=== PATIENT | female | born 1985 | race Hispanic/Latino ===

== ENCOUNTER → 2016-05-25 | Outpatient (REF) ==
--- NOTE | 2016-05-26 01:52 | REP ---
Clinical: Pain . Technique: AP, lateral, bilateral oblique and sunrise views right knee . Findings: The osseous structures and joint spaces are intact and relatively normal for age. There is no evidence for acute fracture or dislocation. No joint effusion is appreciated. [place] view cannot exclude very minimal heterogeneity to the undersurface of the patella with lateral patellofemoral joint space narrowing. Surrounding soft tissues are unremarkable. No subcutaneous emphysema or radiodense foreign body. Impression: Relatively normal, age-appropriate examination. Cannot exclude subtle degenerative changes to the patellofemoral joint space and correlation is recommended. Signed by Andres Copeland MD 05/26/2016 01:45 A
--- NOTE | 2016-05-26 01:56 | REP ---
Clinical: Pain and disability . Technique: AP, lateral, bilateral oblique, and coned-down views. Findings: Alignment and lordosis is maintained. The vertebral bodies including transverse process and spinous processes are intact and normal for age. Disc spaces appear relatively well maintained. There is no evidence for acute fracture / compression injury or subluxation. No evidence for spondylolysis or spondylolisthesis. No significant degenerative change is noted. Impression: Age appropriate lumbosacral spine radiograph series. If the patient remains symptomatic consider MRI for further investigation. Signed by Andres Copeland MD 05/26/2016 01:49 A
== END | disposition home or self-care (01) ==
LOC: M SMT 09:56
PROVIDERS: ATTEND Internal Medicine
DX: Z02.71 Encounter for disability determination (principal)

== ENCOUNTER 2016-06-10 22:51 | Emergency (ER) | payer BC, MEDICAID, OTHER ==
[2016-06-10] MEDS ORDERED: METHOCARBAMOL 500 MG TAB As Ordered ONE (23:35)
[2016-06-10] MEDS ORDERED: NORCO 5/325MG TABLET (BULK) As Ordered ONE (23:36)
--- NOTE | 2016-06-10 23:47 | EDDOCDS ---
Physician Documentation [facility] Name: Lupis Vo Age: 31 yrs Sex: Female : 1985 Arrival Date: 06/10/2016 Time: 22:51 Bed TR7 Private MD: Kin Onofre Disposition: 06/10/16 23:35 Discharged to Home/Self Care. Impression: Strain of muscle, fascia and tendon of lower back. - Condition is Stable. - Discharge Instructions: Lumbosacral Strain, Muscle Strain. - Prescriptions for Ibuprofen 800 mg Oral Tablet - take 1 tablet by ORAL route every 8 hours As needed take with food; 30 tablet. Robaxin 500 mg Oral Tablet - take 2 tablet by ORAL route every 6 hours As needed; 40 tablet. - Medication Reconciliation, Local Pharmacy Hours form. - Follow up: Private Physician; When: Call to arrange an appointment; Reason: Recheck today's complaints, Continuance of care. - Problem is new. - Symptoms are unchanged. Historical: - Allergies: No known drug Allergies; - Home Meds: 1. Naprosyn 220mg Oral tab 1 tab every 6 hours 2. loratadine 10 mg Oral tab 1 tab once daily 3. venlafaxine 37.5 mg oral tr24 1 tab once daily 4. fluoxetine 10 mg Oral cap 1 caps once daily 5. buspirone 10 mg Oral tab 1 tab 2 times per day - PMHx: Anxiety; Depression; Headaches; Allergies, Seasonal; Chronic Back pain; - PSHx: Cholecystectomy; - Social history: Smoking status: Patient states former smoker of tobacco. No barriers to communication noted, The patient speaks fluent Malay, Speaks appropriately for age. - Family history: Not pertinent. - : The pt / caregiver states he / she is not on anticoagulants. Home medication list is obtained from the patient. - Exposure Risk Screening:: None identified. 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 1 in. (154.94 cm); Pain 9/10; 22:52 Body Mass Index 48.56 (116.57 kg, 154.94 cm) sew MDM: 23:33 Methocarbamol 1 grams PO once ordered. mo1 23:33 HYDROcodone-acetaminophen 4 pack- 5 mg-325 mg 1 packets PO Per package directions; mo1 Dispense with patient. 1 po q4h prn for pain ordered. 23:40 [facility] Payment Agreement was scanned into [employer] and attached to record. gabe 23:40 Financial registration complete. gjb Administered Medications: 23:42 Drug: HYDROcodone-acetaminophen 4 pack- 1 packets [hydrocodone 5 mg-acetaminophen 325 ld5 mg tablet (1 tabs)] {Co-Signature: elio (Jacy Allen RN).} Route: PO; 23:44 Follow up: Response: Med's dispensed home ld5 23:44 Drug: Methocarbamol 1 grams [methocarbamol 500 mg tablet (2 tabs)] Route: PO; ld5 23:44 Follow up: Response: Confirmed pt not driving. ld5 Signatures: Ute Camara RN RN ld5 Jose Franklin PA PA mo1 Ariel Castaneda RN RN nn1 April Ruano b Jacy Allen RN, mcp The chart was reviewed and I authenticate all verbal orders and agree with the evaluation and treatment provided.Attachments: 23:40 [facility] Payment Agreement ivette MTDD
--- NOTE | 2016-06-10 23:47 | EDDOCDS ---
Nurse's Notes [facility] Name: Lupis Vo Age: 31 yrs Sex: Female : 1985 Arrival Date: 06/10/2016 Time: 22:51 Bed TR7 Private MD: Kin Onofre Diagnosis: Strain of muscle, fascia and tendon of lower back Presentation: 06/10 22:53 Presenting complaint: Patient states: back pain that started mid back and now is mainly nn1 right lower back pain. Reports history of back pain, states "my doctor is only giving Naprosyn and its not working". Acute neurological deficits are not present. Mechanism of Injury: No Mechanism of Injury. Adult Sepsis Screening: The patient does not have new or worsening altered mentation. Patient's respiratory rate is less than 22. Systolic blood pressure is greater than 100. Patient has a qSOFA score of 0- Negative Sepsis Screen. Suicide/Homicide risk assessment- the patient denies having any suicidal and/or homicidal ideations and does not present with any other emotional, behavioral or mental health complaints. Status: Patient is not a vp marketing services and skin or dependent. Transition of care: patient was not received from another setting of care. 22:53 Acuity: LUCIO Level 4 nn1 22:53 Method Of Arrival: Walkin/Carried/Asstd nn1 Triage Assessment: 22:59 General: Appears in no apparent distress, comfortable, Behavior is appropriate for age, nn1 cooperative. Pain: Location: right low back Pain currently is 9 out of 10 on a pain scale. Quality of pain is described as pressure, Pain began 2-3 days ago. Pt Declines HIV testing. Musculoskeletal: Circulation, motion, and sensation intact Capillary refill < 3 seconds Range of motion intact in all extremities. 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 Naprosyn 220mg Oral tab 1 tab every 6 hours 2. loratadine 10 mg Oral tab 1 tab once daily 3. venlafaxine 37.5 mg oral tr24 1 tab once daily 4. fluoxetine 10 mg Oral cap 1 caps once daily 5. buspirone 10 mg Oral tab 1 tab 2 times per day - PMHx: Anxiety; Depression; Headaches; Allergies, Seasonal; Chronic Back pain; - PSHx: Cholecystectomy; - Social history: Smoking status: Patient states former smoker of tobacco. No barriers to communication noted, The patient speaks fluent Palestinian, Speaks appropriately for age. - Family history: Not pertinent. - : The pt / caregiver states he / she is not on anticoagulants. Home medication list is obtained from the patient. - Exposure Risk Screening:: None identified. Screenin:44 Screening information is obtained from the patient. Fall risk: No risks identified. ld5 Assistance ADL's: requires no assistance with activities of daily living. Abuse/DV Screen: The patient / caregiver reports he/she is: not in a situation that causes fear, pain or injury. Nutritional screening: No deficits noted. Advance Directives: Currently, there is no health care proxy. home support is adequate. Assessment: 23:44 General: Appears in no apparent distress, Behavior is cooperative. Pain: Location: ld5 right low back Pain currently is 8 out of 10 on a pain scale. Neurological: Level of Consciousness is awake, alert. Respiratory: Airway is patent Respiratory effort is even, unlabored. Vital Signs: 22:52 BP 112 / 75; Pulse 72; Resp 16; Temp 96.8(T); Pulse Ox 99% on R/A; Weight 116.57 kg; sew Height 5 ft. 1 in. (154.94 cm); Pain 9/10; 22:52 Body Mass Index 48.56 (116.57 kg, 154.94 cm) [facility] [place] Vitals: 22:52 Log In Time: June 10, 2016 at 22:50. [facility] [place] ED Course: 22:52 Patient visited by Domitila Gomes. sew 22:52 Kin Onofre DO is Private Physician. sew 22:52 Patient moved to Waiting sew 22:53 Patient visited by Domitila Gomes. sew 22:53 Patient moved to Pre RCE sew 22:56 Triage Initiated nn1 23:23 Jose Franklin PA is PHCP. mo1 23:23 Erik Foy DO is Attending Physician. mo1 23:23 Patient moved to Triage 2 mcp 23:27 Patient visited by Jose Franklin PA. mo1 23:40 [facility] Payment Agreement was scanned into [employer] and attached to record. gjb 23:43 Patient moved to TR7 ld5 23:44 The patient / caregiver is instructed regarding the plan of care and ED course. ld5 23:44 No IV's were initiated during this patient's visit. No procedures done that require ld5 assistance. 23:46 Patient visited by Ute Camara RN. ld5 Administered Medications: 23:42 Drug: HYDROcodone-acetaminophen 4 pack- 1 packets [hydrocodone 5 mg-acetaminophen 325 ld5 mg tablet (1 tabs)] {Co-Signature: elio (Jacy Allen RN).} Route: PO; 23:44 Follow up: Response: Med's dispensed home ld5 23:44 Drug: Methocarbamol 1 grams [methocarbamol 500 mg tablet (2 tabs)] Route: PO; ld5 23:44 Follow up: Response: Confirmed pt not driving. ld5 Order Results: There are currently no results for this order. Outcome: 23:35 Discharge ordered by Provider. mo1 23:44 Discharge Assessment: Patient awake, alert and oriented x 3. No cognitive and/or ld5 functional deficits noted. Patient verbalized understanding of disposition instructions. patient administered narcotics - yes. Pt provided with safe discharge. The following High Risk Discharge criteria are identified: None. Discharged to home ambulatory. Condition: stable. Discharge instructions given to patient, Instructed on discharge instructions, follow up and referral plans. medication usage, no driving heavy equipment, Demonstrated understanding of instructions, medications, Pt was receptive of discharge instructions/ teaching. Prescriptions given X 2. No special radiology studies were completed. Property :Personal belongings accompany Pt. 23:46 Patient left the ED. ld5 Signatures: Jacy Allen RN RN mcp Dickerson, Laura,RN RN rafaela5 Domitila Gomes Michael, PA PA mo1 Ariel Castaneda RN RN nn1 April Ruano RN, mcp MTDD
--- NOTE | 2016-06-13 00:47 | EDDOCDS ---
Physician Documentation [facility] Name: Lupis Vo Age: 31 yrs Sex: Female : 1985 Arrival Date: 06/10/2016 Time: 22:51 Bed TR7 Private MD: Kin Onofre Disposition: 06/10/16 23:35 Discharged to Home/Self Care. Impression: Strain of muscle, fascia and tendon of lower back. - Condition is Stable. - Discharge Instructions: Lumbosacral Strain, Muscle Strain. - Prescriptions for Ibuprofen 800 mg Oral Tablet - take 1 tablet by ORAL route every 8 hours As needed take with food; 30 tablet. Robaxin 500 mg Oral Tablet - take 2 tablet by ORAL route every 6 hours As needed; 40 tablet. - Medication Reconciliation, Local Pharmacy Hours form. - Follow up: Private Physician; When: Call to arrange an appointment; Reason: Recheck today's complaints, Continuance of care. - Problem is new. - Symptoms are unchanged. Historical: - Allergies: No known drug Allergies; - Home Meds: 1. Naprosyn 220mg Oral tab 1 tab every 6 hours 2. loratadine 10 mg Oral tab 1 tab once daily 3. venlafaxine 37.5 mg oral tr24 1 tab once daily 4. fluoxetine 10 mg Oral cap 1 caps once daily 5. buspirone 10 mg Oral tab 1 tab 2 times per day - PMHx: Anxiety; Depression; Headaches; Allergies, Seasonal; Chronic Back pain; - PSHx: Cholecystectomy; - Social history: Smoking status: Patient states former smoker of tobacco. No barriers to communication noted, The patient speaks fluent Kiswahili, Speaks appropriately for age. - Family history: Not pertinent. - : The pt / caregiver states he / she is not on anticoagulants. Home medication list is obtained from the patient. - Exposure Risk Screening:: None identified. 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 1 in. (154.94 cm); Pain 9/10; 22:52 Body Mass Index 48.56 (116.57 kg, 154.94 cm) sew MDM: 23:33 Methocarbamol 1 grams PO once ordered. mo1 23:33 HYDROcodone-acetaminophen 4 pack- 5 mg-325 mg 1 packets PO Per package directions; mo1 Dispense with patient. 1 po q4h prn for pain ordered. 23:40 [facility] Payment Agreement was scanned into [employer] and attached to record. [facility] [place] 23:40 Financial registration complete. [facility] [place] 06/11 10:59 T-Sheet-- Draft Copy was scanned into [employer] and attached to record. gb Administered Medications: 06/10 23:42 Drug: HYDROcodone-acetaminophen 4 pack- 1 packets [hydrocodone 5 mg-acetaminophen 325 ld5 mg tablet (1 tabs)] {Co-Signature: mcp (Jacy Allen RN).} Route: PO; 23:44 Follow up: Response: Med's dispensed home ld5 23:44 Drug: Methocarbamol 1 grams [methocarbamol 500 mg tablet (2 tabs)] Route: PO; ld5 23:44 Follow up: Response: Confirmed pt not driving. ld5 Signatures: Saige Kelly, Reg Reg gb Ute Camara RN RN ld5 Jose Franklin PA PA mo1 Ariel Castaneda RN RN nn1 April Ruano gjb Jacy Allen RN, mcp The chart was reviewed and I authenticate all verbal orders and agree with the evaluation and treatment provided.Attachments: 23:40 [facility] Payment Agreement [facility] [place] 06/11 10:59 T-Sheet-- Draft Copy gb Chart Complete MTDD
--- NOTE | 2016-06-13 00:47 | EDDOCDS ---
Nurse's Notes [facility] Name: Lupis Vo Age: 31 yrs Sex: Female : 1985 Arrival Date: 06/10/2016 Time: 22:51 Bed TR7 Private MD: Kin Onofre Diagnosis: Strain of muscle, fascia and tendon of lower back Presentation: 06/10 22:53 Presenting complaint: Patient states: back pain that started mid back and now is mainly nn1 right lower back pain. Reports history of back pain, states "my doctor is only giving Naprosyn and its not working". Acute neurological deficits are not present. Mechanism of Injury: No Mechanism of Injury. Adult Sepsis Screening: The patient does not have new or worsening altered mentation. Patient's respiratory rate is less than 22. Systolic blood pressure is greater than 100. Patient has a qSOFA score of 0- Negative Sepsis Screen. Suicide/Homicide risk assessment- the patient denies having any suicidal and/or homicidal ideations and does not present with any other emotional, behavioral or mental health complaints. Status: Patient is not a hosted services analyst or dependent. Transition of care: patient was not received from another setting of care. 22:53 Acuity: LUCIO Level 4 nn1 22:53 Method Of Arrival: Walkin/Carried/Asstd nn1 Triage Assessment: 22:59 General: Appears in no apparent distress, comfortable, Behavior is appropriate for age, nn1 cooperative. Pain: Location: right low back Pain currently is 9 out of 10 on a pain scale. Quality of pain is described as pressure, Pain began 2-3 days ago. Pt Declines HIV testing. Musculoskeletal: Circulation, motion, and sensation intact Capillary refill < 3 seconds Range of motion intact in all extremities. 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 Naprosyn 220mg Oral tab 1 tab every 6 hours 2. loratadine 10 mg Oral tab 1 tab once daily 3. venlafaxine 37.5 mg oral tr24 1 tab once daily 4. fluoxetine 10 mg Oral cap 1 caps once daily 5. buspirone 10 mg Oral tab 1 tab 2 times per day - PMHx: Anxiety; Depression; Headaches; Allergies, Seasonal; Chronic Back pain; - PSHx: Cholecystectomy; - Social history: Smoking status: Patient states former smoker of tobacco. No barriers to communication noted, The patient speaks fluent Guatemalan, Speaks appropriately for age. - Family history: Not pertinent. - : The pt / caregiver states he / she is not on anticoagulants. Home medication list is obtained from the patient. - Exposure Risk Screening:: None identified. Screenin:44 Screening information is obtained from the patient. Fall risk: No risks identified. ld5 Assistance ADL's: requires no assistance with activities of daily living. Abuse/DV Screen: The patient / caregiver reports he/she is: not in a situation that causes fear, pain or injury. Nutritional screening: No deficits noted. Advance Directives: Currently, there is no health care proxy. home support is adequate. Assessment: 23:44 General: Appears in no apparent distress, Behavior is cooperative. Pain: Location: ld5 right low back Pain currently is 8 out of 10 on a pain scale. Neurological: Level of Consciousness is awake, alert. Respiratory: Airway is patent Respiratory effort is even, unlabored. Vital Signs: 22:52 BP 112 / 75; Pulse 72; Resp 16; Temp 96.8(T); Pulse Ox 99% on R/A; Weight 116.57 kg; sew Height 5 ft. 1 in. (154.94 cm); Pain 9/10; 22:52 Body Mass Index 48.56 (116.57 kg, 154.94 cm) [facility] [place] Vitals: 22:52 Log In Time: June 10, 2016 at 22:50. [facility] [place] ED Course: 22:52 Patient visited by Domitila Gomes. sew 22:52 Kin Onofre DO is Private Physician. sew 22:52 Patient moved to Waiting sew 22:53 Patient visited by Domitila Gomes. sew 22:53 Patient moved to Pre RCE sew 22:56 Triage Initiated nn1 23:23 Jose Franklin PA is PHCP. mo1 23:23 Erik Foy DO is Attending Physician. mo1 23:23 Patient moved to Triage 2 mcp 23:27 Patient visited by Jose Franklin PA. mo1 23:40 [facility] Payment Agreement was scanned into [employer] and attached to record. gjb 23:43 Patient moved to TR7 ld5 23:44 The patient / caregiver is instructed regarding the plan of care and ED course. ld5 23:44 No IV's were initiated during this patient's visit. No procedures done that require ld5 assistance. 23:46 Patient visited by Ute Camara RN. ld5 06/11 10:59 T-Sheet-- Draft Copy was scanned into [employer] and attached to record. gb Administered Medications: 06/10 23:42 Drug: HYDROcodone-acetaminophen 4 pack- 1 packets [hydrocodone 5 mg-acetaminophen 325 ld5 mg tablet (1 tabs)] {Co-Signature: elio (Jacy Allen RN).} Route: PO; 23:44 Follow up: Response: Med's dispensed home ld5 23:44 Drug: Methocarbamol 1 grams [methocarbamol 500 mg tablet (2 tabs)] Route: PO; ld5 23:44 Follow up: Response: Confirmed pt not driving. ld5 Order Results: There are currently no results for this order. Outcome: 23:35 Discharge ordered by Provider. mo1 23:44 Discharge Assessment: Patient awake, alert and oriented x 3. No cognitive and/or ld5 functional deficits noted. Patient verbalized understanding of disposition instructions. patient administered narcotics - yes. Pt provided with safe discharge. The following High Risk Discharge criteria are identified: None. Discharged to home ambulatory. Condition: stable. Discharge instructions given to patient, Instructed on discharge instructions, follow up and referral plans. medication usage, no driving heavy equipment, Demonstrated understanding of instructions, medications, Pt was receptive of discharge instructions/ teaching. Prescriptions given X 2. No special radiology studies were completed. Property :Personal belongings accompany Pt. 23:46 Patient left the ED. ld5 Signatures: Jacy Allen RN RN mcp Barnhardt, Gloria, Reg Reg Ute Camara,RN RN rafaela5 Domitila Gomes Michael, PA PA mo1 Ariel CastanedaRN RN [email or web address] April Ruano RN, mcp Chart Complete MTDD
--- NOTE | 2016-06-13 00:47 | EDDOCDS ---
Physician Documentation [facility] Name: Lupis Vo Age: 31 yrs Sex: Female : 1985 Arrival Date: 06/10/2016 Time: 22:51 Bed TR7 Private MD: Kin Onofre Disposition: 06/10/16 23:35 Discharged to Home/Self Care. Impression: Strain of muscle, fascia and tendon of lower back. - Condition is Stable. - Discharge Instructions: Lumbosacral Strain, Muscle Strain. - Prescriptions for Ibuprofen 800 mg Oral Tablet - take 1 tablet by ORAL route every 8 hours As needed take with food; 30 tablet. Robaxin 500 mg Oral Tablet - take 2 tablet by ORAL route every 6 hours As needed; 40 tablet. - Medication Reconciliation, Local Pharmacy Hours form. - Follow up: Private Physician; When: Call to arrange an appointment; Reason: Recheck today's complaints, Continuance of care. - Problem is new. - Symptoms are unchanged. Historical: - Allergies: No known drug Allergies; - Home Meds: 1. Naprosyn 220mg Oral tab 1 tab every 6 hours 2. loratadine 10 mg Oral tab 1 tab once daily 3. venlafaxine 37.5 mg oral tr24 1 tab once daily 4. fluoxetine 10 mg Oral cap 1 caps once daily 5. buspirone 10 mg Oral tab 1 tab 2 times per day - PMHx: Anxiety; Depression; Headaches; Allergies, Seasonal; Chronic Back pain; - PSHx: Cholecystectomy; - Social history: Smoking status: Patient states former smoker of tobacco. No barriers to communication noted, The patient speaks fluent Sinhala, Speaks appropriately for age. - Family history: Not pertinent. - : The pt / caregiver states he / she is not on anticoagulants. Home medication list is obtained from the patient. - Exposure Risk Screening:: None identified. 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 1 in. (154.94 cm); Pain 9/10; 22:52 Body Mass Index 48.56 (116.57 kg, 154.94 cm) sew MDM: 23:33 Methocarbamol 1 grams PO once ordered. mo1 23:33 HYDROcodone-acetaminophen 4 pack- 5 mg-325 mg 1 packets PO Per package directions; mo1 Dispense with patient. 1 po q4h prn for pain ordered. 23:40 [facility] Payment Agreement was scanned into [employer] and attached to record. [facility] 23:40 Financial registration complete. [facility] 06/11 10:59 T-Sheet-- Draft Copy was scanned into [employer] and attached to record. gb Administered Medications: 06/10 23:42 Drug: HYDROcodone-acetaminophen 4 pack- 1 packets [hydrocodone 5 mg-acetaminophen 325 ld5 mg tablet (1 tabs)] {Co-Signature: mcp (Jacy Allen RN).} Route: PO; 23:44 Follow up: Response: Med's dispensed home ld5 23:44 Drug: Methocarbamol 1 grams [methocarbamol 500 mg tablet (2 tabs)] Route: PO; ld5 23:44 Follow up: Response: Confirmed pt not driving. ld5 Signatures: Saige Kelly, Reg Reg gb Ute Camara RN RN ld5 Jose Franklin PA PA mo1 Ariel Castaneda RN RN nn1 April Ruano gjb Jacy Allen RN, mcp The chart was reviewed and I authenticate all verbal orders and agree with the evaluation and treatment provided.Attachments: 23:40 [facility] Payment Agreement [facility] 06/11 10:59 T-Sheet-- Draft Copy gb Chart Complete MTDD
== END 2016-06-10 23:46 | disposition home or self-care (01) ==
LOC: M ED 22:51
DX: S33.5XXA Sprain of ligaments of lumbar spine, initial encounter (principal); F41.9 Anxiety disorder, unspecified; F32.9 Major depressive disorder, single episode, unspecified; J30.2 Other seasonal allergic rhinitis; Z87.891 Personal history of nicotine dependence; Z79.891 Long term (current) use of opiate analgesic; Z79.899 Other long term (current) drug therapy; X58.XXXA Exposure to other specified factors, initial encounter; Y92.89 Other specified places as the place of occurrence of the external cause; Y93.89 Activity, other specified; Y99.9 Unspecified external cause status

== ENCOUNTER → 2016-08-19 | Outpatient (REF) | payer OTHER | LOC: M SFHCPLAZ 07:37 | DX: Z00.00 Encounter for general adult medical examination without abnormal findings (principal) ==

== ENCOUNTER 2016-12-15 12:57 | Inpatient (IN) | payer OTHER ==
[~2016-12-15] VITALS: Ht 154.9 cm; Wt 102.2 kg
[2016-12-15] MEDS ORDERED: NS 1,000 ML IV ONE (13:45)
[2016-12-15 14:07] LABS: MEAN CORPUSCULAR HEMOGLOBIN 28.5 pg (27.0-33.0); MEAN CORPUSCULAR HGB CONC 33.4 g/dl (32.0-36.5); MEAN CORPUSCULAR VOLUME 85.1 fl (80.0-96.0); RED CELL DISTRIBUTION WIDTH 13.1 % (11.5-14.5); WHITE BLOOD COUNT 14.7 K/mm3 (4.0-10.0)
[2016-12-15 14:19] LABS: CONTROL LINE HCG INT CTR LINE PRESENT
[2016-12-15 14:32] LABS: ALBUMIN 3.9 GM/DL (3.2-5.2); ALBUMIN/GLOBULIN RATIO 0.81 (1.00-1.93); ALKALINE PHOSPHATASE 112 U/L (45-117); ALT/SGPT 23 U/L (12-78); ANION GAP 10 MEQ/L (8-16); AST/SGOT 21 U/L (15-37); BILIRUBIN,DIRECT < 0.1 MG/DL (0.0-0.2); BILIRUBIN,TOTAL 0.4 MG/DL (0.2-1.0); BLOOD UREA NITROGEN 12 MG/DL (7-18); CALCIUM LEVEL 9.6 MG/DL (8.5-10.1); CARBON DIOXIDE LEVEL 25 MEQ/L (21-32); CHLORIDE LEVEL 105 MEQ/L (98-107); CREATININE FOR GFR 0.75 MG/DL (0.55-1.02); GLOMERULAR FILTRATION RATE > 60.0 (>60); GLUCOSE, FASTING 140 MG/DL (70-105); POTASSIUM SERUM 4.2 MEQ/L (3.5-5.1); SODIUM LEVEL 140 MEQ/L (136-145); TOTAL PROTEIN 8.7 GM/DL (6.4-8.2)
[2016-12-15 15:05] LABS: METHADONE URINE NEGATIVE (NEGATIVE)
--- NOTE | 2016-12-15 15:39 | REP ---
Portable chest x-ray: Single view. History: Altered mental status. Bradycardia. No comparison views. Findings: The lungs are symmetrically aerated and free of infiltrate. Heart is not felt to be enlarged. Pulmonary vasculature is not increased. EKG monitoring electrodes overlie the chest. Impression: No acute disease. Signed by Clayton Packer MD 12/15/2016 04:31 P
[2016-12-15] MEDS ORDERED: LORA10TA2 PO (17:28)
[2016-12-15] MEDS ORDERED: MELO15TA4 PO (17:28)
[2016-12-15] MEDS ORDERED: FLUO20CA19 PO (17:28)
[2016-12-15] MEDS ORDERED: FLUO10TA30 PO (17:28)
[2016-12-15] MEDS ORDERED: ZANA4TAB PO (17:29)
[2016-12-15] MEDS ORDERED: BUSP10TA PO (17:29)
[2016-12-15] MEDS ORDERED: METH20TA29 PO (17:29)
[2016-12-15] MEDS ORDERED: ONDANSETRON 4MG/2ML VIAL (J2405) IV PRN (20:00)
[2016-12-15] MEDS ORDERED: ATROPINE SULF 1MG/10ML SYRINGE (J0461) IV PRN (20:30)
--- NOTE | 2016-12-15 21:10 | HPE ---
DATE OF ADMISSION: 12/15/2016 This is a patient of Dr. Miller's and apparently BRENT Friedman CHIEF COMPLAINT: "My psychiatrist is an idiot." The following is a summary of her presentation: This is a 31-year-old patient who went to see Dr. Miller today, apparently she was feeling sluggish, was not quite herself, and Dr. Miller sent her for a psychiatric evaluation to the emergency department. In the emergency department, she was found to have a low heart rate, found to be in sinus rhythm, with no evidence of heart block, and I was called for admission. She is not complaining of any pain, chest pain, shortness of breath. She does not feel weak. Apparently, she has been taking some extra tizanidine because of muscle spasm and perhaps back pain. Although she is a relatively poor historian, she is alert and oriented times three. She is with her boyfriend who says that her level of mental status appears normal to him. Past surgical history is notable only for gallbladder removal. Past medical history is notable for denying diabetes, denying hypertension. She does have attention deficit hyperactivity disorder (ADHD) and insomnia. She has previously had cutting behavior. She says she has not had any previous issue with low heart rate. She has never been admitted to the mental health unit. ALLERGIES: No known drug allergies. Medications at home include: - fluoxetine - loratadine - meloxicam - tizanidine - methylphenidate - BuSpar Family history is notable for psychiatric illness. Socially, she does not smoke cigarettes. She does not use alcohol. She does smoke marijuana. She lives in [place]. Review of systems is somewhat limited, but specifically she is not describing any chest pain, shortness of breath, weakness, dizziness. Has no dysuria nor increased urinary frequency. Denies any interest in self-injurious behavior. On physical exam, her heart rate is 30-35, temperature is 97.2, respiratory rate 16, blood pressure most recently 178/97, with pulse oxygen 98%. Body mass index is 43.6. Note that during the course of my evaluation, the patient sits up and stands at bedside, takes a step to reach for something, and her heart rate goes to 40, she does not appear unsteady on her feet. On physical exam, she is morbidly obese. She has shockingly red hair. Her pupils are midrange and reactive. Nasal septum is midline. Mucous membranes are moist. Neck is thick. No obvious elevation in jugular venous pressure (JVP). Breathing is symmetrical, rested. I:E ratio is 1:3. She is speaking in complete sentences, although she is speaking slowly and sequitously, she does stay on topic. Heart is in a regular rate and rhythm. EKG shows sinus with a narrow QRS and no prolonged QTc, but bradycardic as previously mentioned. Abdomen soft, doughy, nontender. There is no lower extremity edema. Strength is symmetrical in the upper and lower extremities. White cell count 14.7, hemoglobin 13.1, and platelets of 498. Sodium 140, potassium 4.2, chloride 105, carbon dioxide 25, BUN 12, creatinine 0.7, glucose of 140, anion gap is 10. There is no elevation in LFTs. TSH within normal limits. hCG is negative. Urinalysis is remarkable for 77 white cells, 3+ leukocyte esterase, 13 red blood cells, 2+ bacteria with squamous epithelial cells noted. Toxicology screen is negative for aspirin, Tylenol, and alcohol. Is positive for cannabinoids. Confirmatory test is pending. Lyme disease was ordered. Chest x-ray shows no acute distress. My assessment is as follows: This is a 31-year-old with sinus bradycardia suspected to be from tizanidine overdose, intentional or not. The patient will require a two midnight hospital stay. Plan will be as follows: 1. Toxicology. I have discussed this case by phone with Poison Control. Half-life of tizanidine is 2.5 hours with metabolites having a half-life of approximately 20 hours. They recommend monitoring the patient on telemetry, giving atropine for bradycardia or even norepinephrine if needed. Certainly now her blood pressure is, if anything, elevated and she has been up and walking without difficulty. There is no role for that at this time. I have asked for two large bore IVs to be placed. Recommend keeping the patient on monitor until bradycardia has resolved and there is no prolongation of QTc and no prolonged QRS. 2. Mental health. The patient is under the care of Dr. Miller. This suspected overdose is likely unintentional, although there is some cutting behavior noted on the left arm. Will place the patient on a sitter and will consider a psychiatric consultation depending on clinical course. 3. The patient has an elevated white cell count and abnormal urinalysis. She does not appear acutely infected. Will check a urine culture (UC) and monitor her for further symptoms. There is no role for antibiotics at this time. 4. The patient's home medications will be held at this point and can be reconsidered in the morning. 5. Deep venous thrombosis (DVT) prophylaxis will be mechanical.
[2016-12-15 22:00] VITALS: BP 161/67
[2016-12-16] VITALS (8 sets, daily range): BP systolic 81–137; BP diastolic 51–68
[2016-12-16 05:29] LABS: MEAN CORPUSCULAR HEMOGLOBIN 28.5 pg (27.0-33.0); MEAN CORPUSCULAR HGB CONC 33.3 g/dl (32.0-36.5); MEAN CORPUSCULAR VOLUME 85.4 fl (80.0-96.0); RED CELL DISTRIBUTION WIDTH 12.8 % (11.5-14.5); WHITE BLOOD COUNT 13.3 K/mm3 (4.0-10.0)
[2016-12-16 06:01] LABS: ANION GAP 11 MEQ/L (8-16); BLOOD UREA NITROGEN 6 MG/DL (7-18); CALCIUM LEVEL 9.2 MG/DL (8.5-10.1); CARBON DIOXIDE LEVEL 21 MEQ/L (21-32); CHLORIDE LEVEL 104 MEQ/L (98-107); CREATININE FOR GFR 0.59 MG/DL (0.55-1.02); DIGOXIN LEVEL 0.2 NG/ML (0.5-2.0); GLOMERULAR FILTRATION RATE > 60.0 (>60); GLUCOSE, FASTING 114 MG/DL (70-105); MAGNESIUM LEVEL 2.2 MG/DL (1.8-2.4); POTASSIUM SERUM 4.3 MEQ/L (3.5-5.1); SODIUM LEVEL 136 MEQ/L (136-145)
--- NOTE | 2016-12-16 08:46 | ECGEPIP ---
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
[2016-12-16] MEDS: ACETAMINOPHEN TAB 650MG DOSE (2X325MG) PO PRN (12:34)
--- NOTE | 2016-12-16 18:36 | IPN ---
DATE: 12/16/2016 SUBJECTIVE: Patient is seen and examined in the room today. Patient denies any acute distress or complaint of discomfort. Denies any chest pain, palpations, weakness, or lightheadedness. No nausea. No vomiting. Per patient, she has been taking muscle relaxants, usually once daily, either in the morning or at night. Patient stated that she rarely takes more than her usual recommended dose. However, per record there is an indication showing that patient may have been taking more than her usual muscle relaxants due to worsening pain in the last few days. Per nursing staff, patient's heart rate has been wandering between 35-45, occasionally the heart rate will raise to 50s. Patient has been having lightheadedness and weakness during bodily movements. OBJECTIVE: VITAL SIGNS: Temperature 97.1, pulse 76, respiration rate is 18, blood pressure 116/62, pulse oximetry is 97% in room air. GENERAL: No sign of acute distress. Alert and oriented times three. HEENT: Normocephalic, atraumatic. Extraocular motors grossly intact. CARDIOVASCULAR: Bradycardic, positive S1, S2. LUNGS: Clear to auscultation bilaterally. ABDOMEN: Soft, nontender, nondistended. Bowel sounds present. No rebound. No guarding. EXTREMITIES: No edema. No sign of cyanosis. LABORATORY DATA: WBC 13.3, hemoglobin 13.8, hematocrit 41.5, platelet count 425. Sodium 136, potassium 4.3, chloride 104, carbon dioxide 21, BUN 6, creatinine 0.59, GFR greater than 60, fasting glucose 114, calcium 9.2, magnesium 2.2. ASSESSMENT AND PLAN: 1. Symptomatic bradycardia. Patient is monitored in telemetry. Currently, patient is still having symptoms, most significantly during any type of body exertion or posture changes. Recommend bed rest for now. Based on the history, there is a suspicion that patient took more than her usual tizanidine. Poison Control was contacted during admission and recommended monitoring on telemetry. The half-life of the tizanidine is approximately 24 hours. Patient will continue under observation. If patient does not have any improvement in the heart rate in the next 24 hours, will consider consulting office services specialist for symptomatic bradycardia. 2. Psychiatric illnesses including attention deficit hyperactivity disorder (ADHD), anxiety, and depression. The patient is under the care of Dr. Miller. At this moment, we will continue the patient's home medications. 3. Chronic back pain. Due to current bradycardia, muscle relaxant will be discontinued. Patient will have Tylenol for pain control. 4. Deep venous thrombosis (DVT) prophylaxis. On thromboembolism deterrents (TEDs) and sequential compression device.
[2016-12-17] VITALS (7 sets, daily range): BP systolic 80–128; BP diastolic 45–79
[2016-12-17 04:31] LABS: MEAN CORPUSCULAR HEMOGLOBIN 28.6 pg (27.0-33.0); MEAN CORPUSCULAR HGB CONC 33.5 g/dl (32.0-36.5); MEAN CORPUSCULAR VOLUME 85.4 fl (80.0-96.0); RED CELL DISTRIBUTION WIDTH 12.9 % (11.5-14.5)
[2016-12-17 04:42] LABS: ANION GAP 11 MEQ/L (8-16); BLOOD UREA NITROGEN 12 MG/DL (7-18); CALCIUM LEVEL 8.9 MG/DL (8.5-10.1); CARBON DIOXIDE LEVEL 24 MEQ/L (21-32); CHLORIDE LEVEL 106 MEQ/L (98-107); GLOMERULAR FILTRATION RATE > 60.0 (>60); GLUCOSE, FASTING 86 MG/DL (70-105); MAGNESIUM LEVEL 2.2 MG/DL (1.8-2.4); POTASSIUM SERUM 3.9 MEQ/L (3.5-5.1); SODIUM LEVEL 141 MEQ/L (136-145)
[2016-12-17] MEDS: METHYLPHENIDATE 5 MG TAB PO SCH ×2 (08:00→16:21)
[2016-12-17] MEDS ORDERED: COSYNTROPIN 0.25 MG/ML VIAL (J0835) IV ONE (09:00)
--- NOTE | 2016-12-17 11:50 | ECGEPIP ---
Stationary ECG Study 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
--- NOTE | 2016-12-17 11:52 | ECHO ---
DATE OF PROCEDURE: 12/17/2016 REFERRING PHYSICIAN: Dr. Gentile INDICATION: Arrhythmia and hypotension. HEIGHT: 155 cm WEIGHT: 105 kg DIMENSIONS: IVS: 0.8 LV: 4.5 LVPW: 0.8 LA: 3.3 Aorta: 3.1 FINDINGS: The study is of acceptable technical quality. Left ventricle is of normal size and systolic function, estimated left ventricular ejection fraction (LVEF) 65-70%. No segmental wall motion abnormalities are appreciated. Right ventricle also appears normal. Both atria appear normal. All four cardiac valves were well seen and appear normal. No pericardial effusion is noted. Inferior vena cava is normal size. Aortic root is normal. Aortic arch is normal. Abdominal aorta was not well seen. Doppler interrogation reveals no aortic stenosis or insufficiency, no mitral stenosis or insufficiency and trace tricuspid and pulmonic insufficiency. Calculated pulmonary artery pressure is within normal limits. Mitral inflow pattern and tissue Doppler imaging of mitral annulus reveal grade 1 diastolic dysfunction. CONCLUSIONS: 1. Study is of acceptable technical quality. 2. Normal left ventricle (LV) size and systolic function, grade 1 diastolic dysfunction. 3. No significant valvular disease. 4. Normal central venous pressure and likely normal pulmonary artery pressure. COMMENT: Subacute bacterial endocarditis (SBE) prophylaxis is not recommended. Hypotension is not due to LV dysfunction. MTDD
--- NOTE | 2016-12-17 12:09 | ECGEPIP ---
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
--- NOTE | 2016-12-17 15:55 | IPN ---
DATE: 12/17/2016 SUBJECTIVE: The patient is seen and examined in the room today. Per patient, yesterday she still had low heart rate and when she tried to stand up she felt lightheadedness , but it only happened a few times yesterday. Denies any palpitations, chest pain, lightheadedness. Denies any difficulty breathing. Denied any neurological changes. According to the patient, she does not remember her baseline blood pressure. However, the only thing she remembers is every time she gets the blood pressure checked, she usually has a systolic greater than 100. Denies any recent medication changes since September by the psychiatrist. Per patient, the patient only smoked regular marijuana and she has never tried the synthetic version. OBJECTIVE: VITAL SIGNS: Temperature is 97.5, pulse is 52, respiratory rate 20, blood pressure is 86/50, pulse oximetry 99% on room air. GENERAL: No sign of acute distress, alert and oriented times three. HEENT: Normocephalic, atraumatic. Extraocular motor grossly intact. CARDIOVASCULAR: Bradycardia with heart rate wandering around 50s-60s. Positive S1, S2. LUNGS: Clear to auscultation bilaterally. ABDOMEN: Soft, nontender, nondistended. Bowel sounds present. No rebound, no guarding. EXTREMITIES: No edema. No sign of cyanosis. LABORATORY DATA: WBC is 10, hemoglobin 12.5, hemoglobin 37.3, platelet count 404. Sodium is 141, potassium 3.9, chloride 106, carbon dioxide 24, BUN 12, creatinine 0.8, GFR greater than 60, fasting glucose 86, lactic acid 0.9, calcium 8.9, magnesium 2.2. Troponin I is 0.02. C-reactive protein is 1.17. ASSESSMENT AND PLAN: 1. Symptomatic bradycardia. The patient is monitored on telemetry. Previously was suspected was due to the patient's frequent use of tizanidine. Tizanidine has been discontinued since admission. Poison control was initially contacted and recommended to monitor the patient on telemetry. The half-life of tizanidine is approximately 24 hours. The patient's heart rate started to improve in the last 24 hours. On the day of admission, the patient had heart rate around 30s. Today the average heart rate is around 50s. Currently surprisingly, the patient also has a significant change of blood pressure. On admission, the patient had hypertensive urgency with a blood pressure wandering around 180 to 200s. In the last 24-48 hours, the patient has continued decrease of the blood pressure now. Yesterday at night, the patient actually had a blood pressure of 80/53 with a mean arterial pressure (MAP) of 62. Currently, the patient is asymptomatic. Will continue to monitor. We will start a trial of bolus of fluid. The patient has atropine IV as needed for the symptomatic bradycardia. 2. Hypertensive urgency. Continues to improve with the discontinuation of tizanidine. Currently the patient is actually hypotensive. We will continue to monitor the patient and try to maintain the MAP above 65. IV fluid as needed. 3. Psychiatric illness including attention deficit hyperactivity disorder (ADHD) , anxiety and depression. The patient is under the care of Dr. Miller. Most recent medication adjustment was in September. When the patient starts to improve clinically , we will restart the patient's Prozac and buspirone. With regard to Ritalin, we will restart with lower than her usual dose. We will continue to monitor symptoms. 4. Chronic back pain. Suspicion for the patient's recurring tizanidine overuse. Muscle relaxant and pain medication will not be given to the patient at this moment. The patient will have Tylenol as needed. 5. Deep venous thrombosis (DVT) prophylaxis. Patient is on thromboembolism deterrent stockings (TEDs) and sequential compression devices. MTDD
[2016-12-17] MEDS: ACETAMINOPHEN TAB 650MG DOSE (2X325MG) PO PRN ×2 (16:28→20:15)
[2016-12-17] MEDS: busPIRone 10 MG TAB PO SCH (20:12)
[2016-12-17] MEDS ORDERED: FLUoxetine 10 MG CAP PO SCH (21:00)
[2016-12-18 00:06] LABS: Lyme Disease IgG/IgM Antibodie <0.91 ISR (0.00-0.90); Lyme Disease IgM Ab Quantitati <0.80 index (0.00-0.79)
[2016-12-18 03:48] VITALS: BP 110/67
[2016-12-18 04:42] LABS: MEAN CORPUSCULAR HEMOGLOBIN 28.6 pg (27.0-33.0); MEAN CORPUSCULAR HGB CONC 34.2 g/dl (32.0-36.5); MEAN CORPUSCULAR VOLUME 83.5 fl (80.0-96.0); RED CELL DISTRIBUTION WIDTH 13.2 % (11.5-14.5); WHITE BLOOD COUNT 12.1 K/mm3 (4.0-10.0)
[2016-12-18 05:01] LABS: ANION GAP 11 MEQ/L (8-16); BLOOD UREA NITROGEN 9 MG/DL (7-18); CALCIUM LEVEL 8.8 MG/DL (8.5-10.1); CARBON DIOXIDE LEVEL 23 MEQ/L (21-32); CHLORIDE LEVEL 107 MEQ/L (98-107); GLOMERULAR FILTRATION RATE > 60.0 (>60); GLUCOSE, FASTING 85 MG/DL (70-105); MAGNESIUM LEVEL 2.1 MG/DL (1.8-2.4); POTASSIUM SERUM 3.2 MEQ/L (3.5-5.1); SODIUM LEVEL 141 MEQ/L (136-145)
[2016-12-18] MEDS ORDERED: POTASSIUM CHLORIDE 10 MEQ SR TABLET PO ONE (06:15)
[2016-12-18 08:00] VITALS: BP 112/64
[2016-12-18] MEDS: busPIRone 10 MG TAB PO SCH (08:43)
[2016-12-18] MEDS: METHYLPHENIDATE 5 MG TAB PO SCH (08:43)
--- NOTE | 2016-12-18 12:49 | ECGEPIP ---
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
--- NOTE | 2016-12-18 15:11 | DSES ---
DATE OF ADMISSION: 12/15/2016 DATE OF DISCHARGE: 12/18/2016 PRIMARY CARE PROVIDER: BRENT Friedman PSYCHIATRIST: Dr. Miller CONSULTANTS: None. PROCEDURES: None. COMPLICATIONS: None. DISCHARGE DIAGNOSES: 1. Drug-induced symptomatic bradycardia. 2. Hypertensive urgency. 3. Psychiatric disease including attention deficit hyperactivity disorder (ADHD), anxiety and depression. 4. Chronic back pain. HOSPITAL COURSE: The patient is a 31-year-old female who presented to [facility] on 12/15/2016 with symptomatic sinus bradycardia. Tizanidine overuse was suspected and the patient was admitted on telemetry. Poison control has been contacted and recommended observation. On admission, the patient had systolic blood pressure persistently running above 180s with a heart rate in the range of 30-35. With time, the patient's heart rated started to improve to the 50-60 range. However, on the second day of her hospitalization, the patient's hypertensive urgency started to turn into hypotension without any medications. Later, the patient's heart rate and blood pressure slowly returned to her baseline. On 12/18/2016, the patient is determined to be medically stable for discharge home with recommendations to followup with her primary care provider in 1-2 weeks. The patient recommended not to take tizanidine anymore because of adverse effect. LABORATORY DATA: WBC is 12.1, hemoglobin is 12.7, hemoglobin 37.2, platelet count is 409. Sodium is 141, potassium 3.2, chloride 107, carbon dioxide 23, BUN 9, creatinine 0.7, GFR greater than 60, fasting glucose 85, calcium is 8.8, magnesium 2.1. Urine toxicology is positive for marijuana. Alcohol level is negative. Lyme disease screening test is negative. MICROBIOLOGY: Blood cultures are negative after 24 hours times two sets. Urine culture is pending. IMAGING STUDIES: Chest x-ray on 12/15/2016 shows no acute disease. DISCHARGE MEDICATIONS: - buspirone 10 mg by mouth twice a day - fluoxetine 30 mg by mouth at bedtime - loratadine 10 mg by mouth daily - Mobic 15 mg by mouth daily - methylphenidate 30 mg by mouth twice a day DISCHARGE INSTRUCTIONS: Discharge home. Activity as tolerated. Diet as tolerated. The patient should followup with her primary care provider, BRENT Friedman in 1-2 weeks. The patient is recommended not to take the tizanidine anymore due to adverse effect. DISCHARGE CONDITION: Stable. DISCHARGE TIME: Greater than 30 minutes.
[2016-12-23 00:06] LABS: GC Carboxy THC 170 ng/mL (Cutoff=10)
== END 2016-12-18 09:00 | disposition home or self-care (01) | DRG 812 ==
LOC: M ED 12:57 → M ED INP 19:59 → MERGE 19:59 → M ICU 21:14
PROVIDERS: ADMIT Internal Medicine; ATTEND Internal Medicine
DX: T42.8X4A Poisoning by antiparkinsonism drugs and other central muscle-tone depressants, undetermined, initial encounter (principal); I95.9 Hypotension, unspecified; E66.01 Morbid (severe) obesity due to excess calories; Z68.41 Body mass index [BMI] 40.0-44.9, adult; Y92.009 Unspecified place in unspecified non-institutional (private) residence as the place of occurrence of the external cause; F90.9 Attention-deficit hyperactivity disorder, unspecified type; R00.1 Bradycardia, unspecified; F41.9 Anxiety disorder, unspecified; F32.9 Major depressive disorder, single episode, unspecified; M54.9 Dorsalgia, unspecified; I16.0 Hypertensive urgency; G47.00 Insomnia, unspecified; Z79.899 Other long term (current) drug therapy; Z91.5 Personal history of self-harm

== ENCOUNTER → 2017-01-06 | Outpatient (CLI) | payer OTHER ==
[~2017-01-06] MED LIST: BUSP10TA PO; FLUO10TA30 PO; FLUO20CA19 PO; LORA10TA2 PO; MELO15TA4 PO; METH20TA29 PO; ZANA4TAB PO
--- NOTE | 2017-01-06 13:56 | REP ---
Clinical: back pain.. Technique: AP, lateral, flexion/extension, bilateral oblique, and coned-down views. Findings: Alignment and lordosis is maintained. The vertebral bodies including transverse process and spinous processes are intact and normal. There is no evidence for acute fracture / compression injury or subluxation. No evidence for spondylolysis or spondylolisthesis. No significant degenerative change is noted. Impression: Normal lumbosacral spine radiograph series. Signed by Andres Copeland MD 01/06/2017 01:47 P
[2017-01-06 14:15] LABS: BASO # 0.1 K/mm3 (0.0-0.2); BASO % 1.3 % (0.0-1.0); EOS # 0.2 K/mm3 (0.0-0.50); EOS % 2.1 % (0.0-3.0); LYMPH % 44.5 % (24.0-44.0); MEAN CORPUSCULAR HEMOGLOBIN 27.9 pg (27.0-33.0); MEAN CORPUSCULAR HGB CONC 31.4 g/dl (32.0-36.5); MONO # 0.5 K/mm3 (0.0-0.8); MONO % 5.8 % (0.0-5.0); NEUTROPHILS # 3.9 K/mm3 (1.8-7.7); NEUTROPHILS % 44.6 % (36.0-66.0); RED CELL DISTRIBUTION WIDTH 13.3 % (11.5-14.5); WHITE BLOOD COUNT 8.7 K/mm3 (4.0-10.0)
[2017-01-06 14:32] LABS: VITAMIN B12 LEVEL 517 PG/ML
[2017-01-06 14:33] LABS: FOLATE > 24.0 NG/ML
[2017-01-06 14:37] LABS: ALBUMIN 3.8 GM/DL (3.2-5.2); ALBUMIN/GLOBULIN RATIO 0.93 (1.00-1.93); ALKALINE PHOSPHATASE 97 U/L (45-117); ALT/SGPT 23 U/L (12-78); ANION GAP 9 MEQ/L (8-16); AST/SGOT 15 U/L (15-37); BILIRUBIN,TOTAL 0.2 MG/DL (0.2-1.0); BLOOD UREA NITROGEN 14 MG/DL (7-18); CALCIUM LEVEL 9.2 MG/DL (8.5-10.1); CARBON DIOXIDE LEVEL 26 MEQ/L (21-32); CHLORIDE LEVEL 107 MEQ/L (98-107); CREATININE FOR GFR 0.79 MG/DL (0.55-1.02); GLOMERULAR FILTRATION RATE > 60.0 (>60); GLUCOSE, FASTING 75 MG/DL (70-105); POTASSIUM SERUM 4.8 MEQ/L (3.5-5.1); SODIUM LEVEL 142 MEQ/L (136-145); TOTAL PROTEIN 7.9 GM/DL (6.4-8.2)
[2017-01-09 14:55] LABS: ALBUMIN 4.15 GM/DL (3.29-5.55); ALBUMIN % 52.5 % (55.8-66.1); GAMMA GLOBULIN % 18.4 % (11.1-18.8)
[2017-01-10 00:06] LABS: Lyme Disease IgG/IgM Antibodie <0.91 ISR (0.00-0.90); Lyme Disease IgM Ab Quantitati <0.80 index (0.00-0.79)
== END ==
LOC: M LAB 13:07 → MERGE 13:07
PROVIDERS: ATTEND Physician Assistant Medical
DX: G43.709 Chronic migraine without aura, not intractable, without status migrainosus (principal); M54.5 Low back pain

== ENCOUNTER → 2017-03-09 | Outpatient (CLI) | payer OTHER ==
--- NOTE | 2017-03-09 17:13 | REP ---
MRI LUMBAR SPINE WITHOUT CONTRAST: HISTORY: Spondylosis. Decreased signal intensity on T2-weighted images is present in the L5-S1 intervertebral disc. This represents disc degeneration. There is no disc bulge or herniation at the L1-2 through L3-4 levels. The nerves exit the neural foramina without compression. A diffuse disc bulge is present at the L4-5 level. This abuts the thecal sac. The L4 nerves exit the neural foramina without compression. A diffuse disc bulge is present at the L5-S1 level. This abuts the S1 nerves. There is no thecal sac compression. The L5 nerves exit the neural foramina without compression. The conus medullaris is normal in appearance terminating at the level of the T12-L1 intervertebral disc. Normal signal intensity is present in the lumbar vertebral bodies. IMPRESSION: 1. Diffuse disc bulge at the L4-5 level. This abuts the thecal sac. 2. Diffuse disc bulge at the L5-S1 level. This abuts the S1 nerves. Signed by Corbin Stoll MD 03/09/2017 05:17 P
== END ==
LOC: M RAD 12:57
PROVIDERS: ATTEND Nurse Practitioner Family
DX: M54.5 Low back pain (principal)

== ENCOUNTER → 2017-03-10 | Outpatient (CLI) | payer OTHER ==
--- NOTE | 2017-03-13 18:48 | SLEEPHOME ---
DATE OF PROCEDURE: 03/10/2017 ORDERED BY: Sangeetha Duran Diagnostic home sleep testing was performed due to concern for the obstructive sleep apnea syndrome in this patient with a history of excessive somnolence. For testing, a NOX-T3 respiratory monitoring device was used. Continuous record was made of pulse, oxygen saturation, air flow, chest and abdominal strain and body position. 10 hours and 59 minutes of data were reviewed and 6 hours and 46 minutes were marked as time in bed. During the interval marked time in bed, there were only 10 respiratory events identified of 10 seconds in duration or greater for a respiratory event index of 1.5. There was significant snoring noted. Baseline pulse rate 70 beats per minute. Pulse rate ranged 57 to 95. Baseline saturation 95%. Lowest oxygen saturation 91%. Testing was performed in both the supine and nonsupine positions. IMPRESSION: Normal diagnostic home sleep test. No evidence of obstructive sleep apnea syndrome demonstrated. Copy To: Barbra Hermosillo
== END ==
LOC: M SLEEP HO 13:37 → M SLEEP 13:37
PROVIDERS: ATTEND Nurse Practitioner Adult Health
DX: G47.30 Sleep apnea, unspecified (principal)

== ENCOUNTER → 2018-09-19 | Outpatient (CLI) | payer MEDICAID ==
[~2018-09-19] MED LIST changes: +LORA-243 PO; -LORA10TA2 PO; +MELO15TA28 PO; -MELO15TA4 PO
== END ==
LOC: M OUTALCOH 09:10
PROVIDERS: ATTEND Psychiatry & Neurology Psychiatry
DX: F12.20 Cannabis dependence, uncomplicated (principal); F10.20 Alcohol dependence, uncomplicated

== ENCOUNTER 2018-09-27 09:42 | Outpatient (RCR) | payer MEDICAID | END 2018-09-28 | LOC: M OUTALCOH 09:42 | PROVIDERS: ATTEND Psychiatry & Neurology Psychiatry | DX: F10.20 Alcohol dependence, uncomplicated (principal); F12.20 Cannabis dependence, uncomplicated ==

== ENCOUNTER 2018-10-26 13:00 | Outpatient (RCR) | payer MEDICAID | END 2018-10-28 | LOC: M OUTALCOH 13:00 | PROVIDERS: ATTEND Psychiatry & Neurology Psychiatry | DX: F10.20 Alcohol dependence, uncomplicated (principal); F12.20 Cannabis dependence, uncomplicated ==

== ENCOUNTER 2018-11-26 16:00 | Outpatient (RCR) | payer MEDICAID | END 2018-11-28 | LOC: M OUTALCOH 16:00 | PROVIDERS: ATTEND Psychiatry & Neurology Psychiatry | DX: F10.20 Alcohol dependence, uncomplicated (principal); F12.20 Cannabis dependence, uncomplicated ==

== ENCOUNTER 2018-12-21 14:46 | Outpatient (RCR) | payer MEDICAID | END 2018-12-29 | LOC: M OUTALCOH 14:46 | PROVIDERS: ATTEND Psychiatry & Neurology Psychiatry | DX: F10.20 Alcohol dependence, uncomplicated (principal); F12.20 Cannabis dependence, uncomplicated ==

== ENCOUNTER → 2018-12-26 | Outpatient (REF) ==
--- NOTE | 2018-12-27 08:07 | REP ---
Clinical: Back pain. Technique: AP, lateral, coned-down views of the lumbosacral spine. Findings: Alignment and lordosis maintained. No acute fracture / compression injury or subluxation. Mild endplate sclerosis with disc space narrowing noted at L5-S1. Remainder examination is age-appropriate. Impression: Mild focal degenerative spondylosis at L5-S1. Electronically Signed by Andres Copeland MD 12/27/2018 07:59 A
== END ==
LOC: M SMT 14:10
PROVIDERS: ATTEND Internal Medicine
DX: M51.36 Other intervertebral disc degeneration, lumbar region (principal)

== ENCOUNTER 2019-01-15 15:47 | Outpatient (RCR) | payer MEDICAID | END 2019-01-28 | LOC: M OUTALCOH 15:47 | PROVIDERS: ATTEND Psychiatry & Neurology Psychiatry | DX: F10.20 Alcohol dependence, uncomplicated (principal); F12.20 Cannabis dependence, uncomplicated ==

== ENCOUNTER 2019-01-29 16:09 | Outpatient (RCR) | payer MEDICAID | END 2019-02-28 | LOC: M OUTALCOH 16:09 | PROVIDERS: ATTEND Psychiatry & Neurology Psychiatry | DX: F10.20 Alcohol dependence, uncomplicated (principal); F12.20 Cannabis dependence, uncomplicated ==

== ENCOUNTER 2020-10-04 12:02 | Emergency (ER) | payer MEDICAID, OTHER ==
[~2020-10-04] VITALS: Ht 154.9 cm; Wt 102.6 kg
[~2020-10-04 12:02] MED LIST changes: -FLUO20CA19 PO; +FLUO20CA22 PO
[2020-10-04] MEDS ORDERED: [UNRECOGNIZED DRUG - CODE] PO (12:31)
[2020-10-04] MEDS ORDERED: ALPR0.25 PO ×2 (12:31→14:36)
[2020-10-04] MEDS ORDERED: BRIN1TAB3 PO (12:31)
[2020-10-04] MEDS ORDERED: GABA-283 PO ×2 (12:31→14:36)
[2020-10-04] MEDS ORDERED: ADDE20TA PO (14:36)
[2020-10-04 14:47] VITALS: BP 138/65
== END 2020-10-04 14:47 | disposition home or self-care (01) ==
LOC: M ED 12:02
DX: Z76.0 Encounter for issue of repeat prescription (principal); F17.200 Nicotine dependence, unspecified, uncomplicated

== ENCOUNTER 2020-10-10 12:47 | Emergency (ER) | payer OTHER ==
[~2020-10-10] VITALS: Ht 154.9 cm; Wt 103.1 kg
[~2020-10-10 12:47] MED LIST changes: +ADDE20TA PO; +ALPR0.25 PO; +BRIN1TAB3 PO; +GABA-283 PO; +[UNRECOGNIZED DRUG - CODE] PO
[2020-10-10] MEDS ORDERED: ADDE20TA PO (16:14)
[2020-10-10 16:30] VITALS: BP 111/67
== END 2020-10-10 16:26 | disposition home or self-care (01) ==
LOC: M ED 12:47
DX: Z76.0 Encounter for issue of repeat prescription (principal); F90.9 Attention-deficit hyperactivity disorder, unspecified type; Z79.899 Other long term (current) drug therapy; F17.210 Nicotine dependence, cigarettes, uncomplicated

== ENCOUNTER → 2021-10-07 | Outpatient (REF) | payer OTHER | LOC: M SFHCDERM 16:57 | PROVIDERS: ATTEND Nurse Practitioner Family | DX: L57.0 Actinic keratosis (principal) ==

== ENCOUNTER 2023-02-26 09:47 | Emergency (ER) | payer OTHER ==
[~2023-02-26] VITALS: Ht 154.9 cm; Wt 79.3 kg
[~2023-02-26 09:47] MED LIST changes: -GABA-283 PO; +GABA-284 PO
[2023-02-26 09:48] VITALS: TEMP 98.4
[2023-02-26] MEDS ORDERED: FLUO40CA (09:53)
[2023-02-26] MEDS ORDERED: XANA0.5T PO (10:44)
[2023-02-26 11:15] VITALS: BP 113/68; O2SAT 98
== END 2023-02-26 11:20 | disposition home or self-care (01) ==
LOC: M ED 09:47
DX: Z76.0 Encounter for issue of repeat prescription (principal); F41.9 Anxiety disorder, unspecified; F90.9 Attention-deficit hyperactivity disorder, unspecified type; Z79.899 Other long term (current) drug therapy